=== PATIENT | female | born 1955 | race Caucasian/White ===

== ENCOUNTER → 2016-05-17 | Outpatient (CLI) | payer OTHER ==
--- NOTE | 2016-05-17 17:21 | MA ---
Screening Digital Mammogram With iCAD Analysis Clinical Indications: Routine screening. A sister was diagnosed with breast cancer in her 50s and her maternal grandmother in her 70s and a maternal aunt in her 60s. Technique: Standard cephalocaudal projections are obtained. Digital breast tomosynthesis was performe d in the MLO projection with reconstruction at 1.0 mm slice thickness and composite MLO views reconst ructed. This examination is processed by the iCAD computer aided detection system. Comparison: May 2015, April 2014, April 2013, November 2012, May 2012, April 2012, Arun [email or web address], April 2010, January 2010, March 2009. Breast density: Type B; Scattered fibroglandular densities. Findings: CAD was reviewed. No masses, suspicious calcifications or secondary signs of malignancy are seen. There has been no significant change in the appearance of either breast. Impression: Negative mammogram. BI-RADS 1. Recommendation: Routine mammographic screening in one year as long as [facility]. Negative mammography should not preclude additional workup of a clinically suspicious finding. The patient's information is entered into a reminder system with a target due date for her next mammo gram.
== END ==
LOC: FIMAGING 13:41
DX: Z12.31 Encounter for screening mammogram for malignant neoplasm of breast (principal); Z80.3 Family history of malignant neoplasm of breast
CPT/HCPCS: G0202

== ENCOUNTER → 2017-05-18 | Outpatient (CLI) | payer OTHER | LOC: FIMAGING 13:13 | PROVIDERS: ATTEND Family Medicine | DX: Z12.31 Encounter for screening mammogram for malignant neoplasm of breast (principal); Z80.3 Family history of malignant neoplasm of breast ==

== ENCOUNTER 2018-01-15 11:06 | Day surgery (SDC) | payer OTHER ==
[2018-01-15] MEDS ORDERED: ceFAZolin 2 GM/DEXTROSE 100 ML IV ONE (11:11)
[2018-01-15] MEDS ORDERED: LR 1,000 ML IV ONE (11:23)
[2018-01-15] MEDS ORDERED: BACITRACIN ZINC 14.2 GM OINTTUBE TP ONE (12:00)
[2018-01-15] MEDS ORDERED: LIDOCAINE 1% 300 MG/30 ML SDV ONE (12:01)
[2018-01-15] MEDS ORDERED: DEXAMETHASONE 4 MG/ML VIAL ONE (12:01)
[2018-01-15] MEDS ORDERED: CYANO/VITAMIN B12 1000 MCG/ML VIAL ONE (12:02)
[2018-01-15] MEDS ORDERED: BUPIVACAINE 0.5% 30 ML SDV ONE (12:03)
[2018-01-15] MEDS ORDERED: ROPIVACAINE HCL 150 MG/30 ML INJ ONE (12:03)
[2018-01-15] MEDS ORDERED: MIDAZOLAM 2 MG/2 ML VIAL IVP ONE (12:13)
--- NOTE | 2018-01-15 12:13 | PDANEPAE ---
ANE Past Medical History - Cardiovascular History Hx Hypertension: No Hx Arrhythmias: No Hx Chest Pain: No Hx Coronary Artery / Peripheral Vascular Disease: No Hx CHF / Valvular Disease: No Hx Palpitations: No - Pulmonary History Hx COPD: No Hx Asthma/Reactive Airway Disease: No Hx Recent Upper Respiratory Infection: No Hx Oxygen in Use at Home: No Hx Sleep Apnea: No Sleep Apnea Screening Result - Last Documented: Negative Pulmonary History Comment: URI 12/2017 - Neurologic History Hx Cerebrovascular Accident: No Hx Seizures: No Hx Dementia: No - Endocrine History Hx Diabetes: No Hypothyroid: No Hyperthyroid: No Obesity: no - Renal History Hx Renal Disorders: No - Liver History Hx Hepatic Disorders: No - Neurological & Psychiatric Hx Hx Neurological and Psychiatric Disorders: No - Cancer History Hx Cancer: No - Congenital Disorder History Hx Congenital Disorders: No - GI History Hx Gastrointestinal Disorders: Yes Gastrointestinal History Comment: CONSTIPATION - Other Health History Other Health History: OCCASIONAL VERTIGO. LOWER FRONT 4 TEETH BONDED TOGETHER - Chronic Pain History Chronic Pain: Yes (LT FOOT) - Surgical History Prior Surgeries: LT SHLDR SCOPE. RT SHLDR RTC. KELLY CATARACT ANE Review of Systems Review of Systems: - Exercise capacity METS (RN): 6 METS ANE Patient History - Allergies Allergies/Adverse Reactions: RADIOGRAPHIC DYES Allergy (Uncoded 01/10/18 13:58) SHORTNESS OF BREATHE - Home Medications Home Medications: Herbals/Supplements -Info Only DAILY 01/10/18 [Last Taken 01/14/18] - NPO status NPO Since - Liquids (Date): 01/15/18 NPO Since - Liquids (Time): 09:30 NPO Since - Solids (Date): 01/14/18 - Smoking Hx Smoking Status: Former smoker ANE Labs/Vital Signs - Vital Signs Blood Pressure: 111/70 Heart Rate: 66 Respiratory Rate: 15 O2 Sat (%): 97 Height: 151.77 cm Weight: 55.338 kg ANE Physical Exam - Airway Neck exam: FROM Mallampati Score: Class 1 Mouth exam: normal dental/mouth exam - Pulmonary Pulmonary: no respiratory distress - Cardiovascular Cardiovascular: regular rate and rhythym - ASA Status ASA Status: I ANE Anesthesia Plan Anesthesia Plan: GA w LMA, MAC
--- NOTE | 2018-01-15 12:36 | PDHPUP ---
History & Physical Update H&P update statement: This history and physical update is based on an assessment of the patient which was completed after admission or registration (within 24 hours), but prior to the surgery/procedure. H&P update: H&P reviewed & patient examined (no health changes), no change in patient's condition since H&P completed
[2018-01-15] MEDS ORDERED: BACITRACIN 50,000 UNITS/10 ML SYR IRR ONE (12:38)
[2018-01-15] MEDS ORDERED: PROPOFOL 200 MG/20 ML VIAL ONE ×2 (12:40→13:27)
[2018-01-15] MEDS ORDERED: fentaNYL 100 MCG/2 ML INJ ONE (12:40)
[2018-01-15] MEDS ORDERED: KETOROLAC 30 MG/1 ML SDV ONE (12:48)
[2018-01-15] MEDS ORDERED: NALOXONE HCL 0.4 MG/ML INJ IVP PRN (13:31)
[2018-01-15] MEDS ORDERED: fentaNYL 100 MCG/2 ML INJ IVP PRN (13:31)
[2018-01-15] MEDS ORDERED: HYDROmorphONE/DILAUDID 2 MG/ML INJ IVP PRN (13:31)
[2018-01-15] MEDS ORDERED: LR 500 ML IV PRN (13:31)
[2018-01-15] MEDS ORDERED: ONDANSETRON 4 MG/2 ML VIAL IVP PRN (13:31)
--- NOTE | 2018-01-15 13:58 | POSTOPPROG ---
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
--- NOTE | 2018-01-15 14:02 | POSTANESTH ---
Post Anesthetic Evaluation Cardiovascular Status: Normal, Stable Respiratory Status: Normal, Stable Level of Consciousness/Mental Status: Can Participate in Eval Pain Control: Adequate, Prn Tx Ordered Nausea/Vomiting Control: Adequate, Prn Tx Ordered Complications Possibly Related to Anesthesia: None Noted
[2018-01-15 15:19] VITALS: BP 120/68
--- NOTE | 2018-01-15 22:26 | GOP ---
DATE OF OPERATION: 01/15/2018 SURGEON: Agnes Walton DPM ANESTHESIA: IV sedation with local. ANESTHESIOLOGIST: Troy Domínguez MD. 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 PROCEDURE PERFORMED: Excision of neuroma 3rd intermetatarsal space, left foot. FINDINGS: DESCRIPTION OF PROCEDURE: The patient presented to the hospital approximately 1-1/2 hours prior to f oot surgery after having been n.p.o. past midnight. The patient's history and physical and all preop erative studies were reviewed, and there were no contraindications to the proposed procedure. The pa tient was given cefazolin 2 g IV 1/2 hour prior to foot surgery. Patient was taken to the OR room and placed on the OR table in a supine position where the appropriat e anesthetic agents were administered. This was supplemented with a local block to the left foot uti lizing a total of 7 cc of 1% lidocaine plain with 7 cc of 0.5% ropivacaine plain performed to the lef t forefoot proximal to the surgical site, focus on the proximal 3rd intermetatarsal space. Left lowe r extremity was then prepped and draped in the usual aseptic fashion, covered with a sterile stockine tte. A sterile pneumatic ankle tourniquet was applied and padded well underneath. Utilizing elevati on overlying Esmarch bandage, the foot was exsanguinated, and the tourniquet was inflated to a pressu re of 220 mmHg. The foot was lowered to the orthopedic table. A curvilinear incision was then made, initiated at the medial aspect of the base of the 4th digit and extended proximally over the 3rd int ermetatarsal space. This incision was deepened through the subcutaneous tissues to the level of the deep transverse intermetatarsal ligament, preserving the neurovascular structures; however, any bleed ers were clamped and cauterized as needed. The transverse intermetatarsal ligament was incised in a distal to proximal fashion, and a white glistening hypertrophic soft tissue firm mass was identified protruding between the heads of the 3rd and 4th metatarsals. There was significant scar tissue and a dhesions surrounding the white firm mass. The 2 distal branches were identified, 1 extending to the base of the 3rd digit and the other into the base of the 4th digit. These were freed from the surrou nding soft tissue structures and then cut. The soft tissue mass was then freed in a distal to proxim al fashion from the surrounding soft tissue structures, taking time due to the significant scar tissu e. The soft tissue mass was freed proximal to the heads of the 3rd and 4th metatarsals and then cut as far proximally as possible and then excised and placed on the back table for pathologic evaluation . The surgical site was inspected and no other soft tissue irregularities or pathology was identifie d. The surgical site was copiously irrigated with sterile saline bacitracin solution. The tournique t was released and there was immediate capillary refill to all digits and there was hemostasis. The proximal aspect of the 3rd intermetatarsal space was then injected with 0.5 cc of cyanocobalamin with 0.5 cc of dexamethasone phosphate. The deep subcutaneous tissues were reapproximated with two 4-0 V icryl sutures. The skin was reapproximated with 4-0 Prolene utilizing interrupted horizontal mattres s sutures. A Silastic drain was placed central to the wound. An additional 6 cc of 0.5% ropivacaine was injected proximal to the surgical site. A mildly compressive dry sterile gauze dressing was sara lied with Xeroform, 4 x 4 gauze, Roderick, and an Napoleon wrap. Patient tolerated the procedure and anesthesia well, was transferred to recovery room with vital sign s stable and vascular status intact to the left lower extremity. In the recovery room, the patient r eceived postoperative oral and written home care instructions. The patient is instructed to wear the Darco shoe at all times when weightbearing and can place pressure on the heel but not the forefoot. She is to utilize crutches for ambulation assist the 1st 2-3 days to help offload the forefoot and t o rest and elevate the extremity the 1st 2-3 days. The patient was given 50 mg of tramadol in the re covery room. The patient is scheduled for her 1st postoperative visit in 3 days. Please call the of [facility] earlier if any questions or problems should arise. /[id number]/MODL
== END 2018-01-15 15:19 | disposition home or self-care (01) ==
LOC: FSGY 11:06
PROVIDERS: ATTEND Podiatrist
DX: G57.62 Lesion of plantar nerve, left lower limb (principal); Z87.891 Personal history of nicotine dependence
CPT/HCPCS: J0690; J1100; J1885; J2250; J2704; J2795; J3010; J3420

== ENCOUNTER → 2018-05-20 | Outpatient (CLI) | payer OTHER | LOC: FIMAGING 11:43 | PROVIDERS: ATTEND Family Medicine | DX: Z12.31 Encounter for screening mammogram for malignant neoplasm of breast (principal) ==

== ENCOUNTER → 2018-08-12 | Outpatient (CLI) | payer OTHER | LOC: FIMAGING 11:43 | PROVIDERS: ATTEND Orthopaedic Surgery | DX: M25.511 Pain in right shoulder (principal) ==